=== PATIENT | male | born 1955 | race Caucasian/White ===

== ENCOUNTER 2022-03-13 06:08 | Emergency (ER) | payer BC ==
[2022-03-13] MEDS ORDERED: Cephalexin 250 MG CAP ONE (06:33)
[2022-03-13] MEDS ORDERED: Sulfameth/Trimethoprim DS 800-160mg TAB ONE (06:33)
== END 2022-03-13 06:38 | disposition home or self-care (01) ==
LOC: BURERS 06:08
DX: L03.116 Cellulitis of left lower limb (principal)
CPT/HCPCS: 99283